=== PATIENT | female | born 1960 ===

== ENCOUNTER 2024-02-01 06:28 | Day surgery (SDC) | payer MEDICARE, SELFPAY | END 2024-02-01 11:14 | disposition home or self-care (01) | LOC: GI 06:28 | PROVIDERS: ATTENDING PHYSICIAN Internal Medicine Gastroenterology | DX: R10.13 Epigastric pain (principal); K31.7 Polyp of stomach and duodenum | CPT/HCPCS: 43239; 88305; 88342 ==